=== PATIENT | female | born 1995 | race African-American/Black ===

== ENCOUNTER → 2021-02-08 08:15 | Outpatient (CLI) | payer OTHER, SELFPAY ==
[2021-02-08 08:47] LABS: COVID19 -Nasal RAPID Negative (Negative)
== END ==
PROVIDERS: Visit Provider Specialist
DX: Z01.812 Encounter for preprocedural laboratory examination (principal); Z20.822 Contact with and (suspected) exposure to COVID-19
CPT/HCPCS: 87635

== ENCOUNTER 2021-02-08 08:57 | Day surgery (SDC) | payer OTHER, SELFPAY ==
[2021-02-08] VITALS (13 sets, daily range): BP systolic 112–134; BP diastolic 61–97; PULSE 70–106; RESP 14–20; TEMP 36.3–36.7; O2SAT 88–100; BMI 32.8
--- NOTE | 2021-02-08 | PATH_ITS ---
[facility] Accession Number: [id number] . 01 Material submitted: . ovary - LEFT OVARIAN CYST WALL . 01 Clinical history: . SDC . 02 Diagnosis: Left Ovarian Cyst Wall, Cystectomy: Mature cystic teratoma (dermoid cyst). No immature elements identified. MRV 02/13/2021 1525 Local . 02 Electronically signed: . Sheila Avery MD, Pathologist NPI- [id number] . 01 Gross description: . The specimen is received in formalin, labeled left ovarian cyst wall, and consists of two medina-pink cyst fragments measuring 2.5 x 1.2 x 0.3 cm in aggregate. No papillary excrescences are identified. The specimen is serially sectioned and entirely submitted in cassette A1. ([id number]) /[facility] 02/09/2021 1402 Local . 02 Pathologist provided ICD-10: D27.9 . 02 CPT . 782043 Performed at: 01 [facility] [address] [facility], [place], [place] [id number] MD Jhon Karimi MD Phone: [phone] Performed at: 02 [facility] [address] [place], [place] [id number] MD Sheila Avery MD Phone: [phone]
[2021-02-08] MEDS: LACTATED RINGERS 1,000 ML 42 ML IV ×3 (09:37→13:37)
[2021-02-08] MEDS: GABAPENTIN 300 MG CAPSULE PO (09:55)
[2021-02-08] MEDS: ACETAMINOPHEN 325 MG TABLET 975 MG PO (09:55)
[2021-02-08] MEDS: SCOPOLAMINE 1 PATCH TOP (09:56)
--- NOTE | 2021-02-08 10:33 | PM.PREOP ---
Pre-operative Note COVID-19 COVID-19 status: Negative Result date/Date tested (Pos, Neg/Pending): 02/07/21 Interval Note History & Physical reviewed/Exam performed by Physician: Yes Changes to H&P: No
--- NOTE | 2021-02-08 10:54 | SUR.OPER ---
Lithotomy on padded OR bed, head on pillow, arms secured on padded arm boards at <90 degrees abduction. Legs secured in padded yellow fins stirrups.
[2021-02-08] MEDS: CEFAZOLIN 2 GM/100 ML FROZ.PIGGY IV (11:25)
[2021-02-08] MEDS: BUPIVACAINE 0.5% W/ EPI (PF) 30 ML VIAL INJ (11:33)
--- NOTE | 2021-02-08 12:17 | P.OP_ITS ---
Operative Date/Time/Diagnoses Date of procedure: 02/08/21 Time of procedure: 12:17 Pre-op diagnosis: pelvic pain and left ovarian mass unclear if abscess or dermoid Post-op diagnosis: same ( left ovarian dermoid) Procedure & Clinicians Procedure: laparoscopy with removal of left ovarian dermoid cyst Same procedure as scheduled: Yes Indications: patient with pelvic pain and left ovarian cyst unclear etiology Surgeon: Priscila Lyles Click Yes if Unassisted: Yes Anesthesia Type: General Operative Notes Findings: Normal intra-abdominal contents. No endometriosis. Normal bowel surface, appendix, liver edge and gallbladder dome. No internal hernias. Almost completely absent right ovary with normal right tube. Normal uterus and left tube. Enlarged left ovary with dermoid cyst. Closure Type: primary Specimen(s): other ( left ovarian cyst wall) Applied: catheter ( Snowden catheter placed at the beginning case and removed at the end of the case) Estimated Blood Loss (mL): 5 Blood products transfused: none Procedure in detail: Patient was brought to the operating room where she underwent general anesthesia. [facility] and prepped and draped in usual sterile fashion. 2 g of Ancef were in prior to beginning of the case. Pulsatile stockings were in place and functional. Warming was with Femi Hugger. A single-tooth tenaculum was placed on the anterior lip of the cervix and the cervix dilated to #6 Hegar dilator. The Gwendolyn uterine manipulator was placed and balloon inflated with 3 mL of air. The area of the incisions were injected with half percent Marcaine with epinephrine. An incision was made in the umbilicus with a scalpel and the Verres needle placed in the abdomen. Confirmation of correct placement of the needle was performed by withdrawing on the syringe and then allowing fluid to fall freely through the needle. The abdomen was insufflated to 4 L of CO2. A 5 mm trocar was placed under direct visualization. 2 other 5 mm trochars were placed in the right and left lower quadrant through her prior incisions under direct visualization after incising the skin. There did not appear to be any damage with placement of the trocars. The left ovary was held and an incision made into the ovary with release of obvious dermoid material. The cyst wall was grasped and removed with tension. The abdomen was irrigated copiously. Adequate hemostasis was noted. The CO2 was allowed to escape from the abdomen. The trochars were removed. Skin was closed with 4-0 monocryl. The patient went to recovery room in good condition. Counts of instruments and sponges were correct. Complications: none Post-operative Condition: stable Disposition: same day surgery Plan for aftercare: home when awake and stable
[2021-02-08] MEDS: HYDROMORPHONE 2 MG INJ IV ×6 (12:30→13:03)
[2021-02-08] MEDS: ONDANSETRON 4 MG/2 ML INJ IV (12:40)
[2021-02-08] MEDS: OXYCODONE IR 5 MG TABLET PO ×2 (12:41→13:14)
--- NOTE | 2021-02-08 13:03 | SUR.PHASEI ---
Report given to Grisel MOREL.
--- NOTE | 2021-02-08 13:06 | SUR.PHASEI ---
assumed care of stable pt from ADRIEL Reveles
== END 2021-02-08 14:11 | disposition home or self-care (01) ==
PROVIDERS: PCP Specialist; Referring Provider Specialist; Visit Provider Specialist
PROC: (CPT 49320; principal; 2021-02-08 10:15)
DX: D27.1 Benign neoplasm of left ovary (principal); N83.8 Other noninflammatory disorders of ovary, fallopian tube and broad ligament; Z87.42 Personal history of other diseases of the female genital tract; K21.9 Gastro-esophageal reflux disease without esophagitis; F41.9 Anxiety disorder, unspecified; E66.9 Obesity, unspecified; Z68.33 Body mass index [BMI] 33.0-33.9, adult; Z01.812 Encounter for preprocedural laboratory examination; Z20.822 Contact with and (suspected) exposure to COVID-19
CPT/HCPCS: 58662; 81025; 87635; J0690; J1100; J1170; J2250; J2405; J2704; J3010